=== PATIENT | female | born 2000 | race Caucasian/White ===

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

== ENCOUNTER 2022-04-09 14:44 | Inpatient (IN) | payer MEDICAID, OTHER ==
[~2022-04-09] VITALS: Ht 162.6 cm; Wt 47.8 kg
[2022-04-09 16:11] LABS: Basophils # (auto) 0 10 ^3/uL (0-0.2); Basophils % (auto) 0.4 % (0.0-2.0); Eosinophils # (auto) 0.1 10 ^3/uL (0-0.8); Hematocrit 36.8 % (36.0-46.0); Hemoglobin 12.2 g/dL (12.2-16.2); Lymphocytes # (auto) 1.8 10 ^3/uL (0.4-5.4); Lymphocytes % (auto) 17.7 % (10.0-50.0); Mean Corpuscular Hemoglobin 31.1 pg (28.0-32.0); Mean Corpuscular Hgb Conc. 33.1 g/dL (32.0-36.0); Monocytes # (auto) 0.6 10 ^3/uL (0-1.3); Neutrophils # (auto) 7.7 10 ^3/uL (1.6-8.6); Neutrophils % (auto) 74.9 % (37.0-80.0); Red Blood Cells 3.91 10^6/uL (4.0-5.20); Red Cell Distribution Width 12.7 % (11.8-14.3); White Blood Cell 10.2 10^3/uL (4.4-10.8)
[2022-04-09] MEDS ORDERED: SODIUM CHLORIDE 0.9% 1,000 ML IV ONE (16:15)
[2022-04-09 16:17] LABS: Urine Bacteria MOD /hpf (None Seen); Urine Blood 3+ /uL (Negative); Urine Mucus FEW (None Seen); Urine Specific Gravity 1.019 (1.001-1.035); Urine WBC 1083 /hpf (0 - 5); Urine WBC Clumps PRESENT /hpf (None Seen)
[2022-04-09 16:29] LABS: BUN/Creatinine Ratio 13.8; Calcium 9.1 mg/dL (8.5-10.1); Potassium 3.9 mmol/L (3.5-5.1)
[2022-04-09] MEDS ORDERED: KETOROLAC TROMETH 30 MG/ML 1ML VIAL IV ONE (17:15)
[2022-04-09] MEDS ORDERED: MORPHINE SULFATE INJ 2 MG/ml SYRG IV PRN (17:30)
[2022-04-09] MEDS ORDERED: ONDANSETRON HCL 4 MG/2 ML VIAL IV PRN (17:30)
[2022-04-09] MEDS: SOD CHL 0.45% 1,000 ML IV SCH (18:32)
[2022-04-09] MEDS ORDERED: SERT25TA14 PO (20:44)
[2022-04-09] MEDS ORDERED: CABE0.5T PO (20:44)
[2022-04-09 23:56] VITALS: BP 113/68
[2022-04-10 05:37] VITALS: BP 96/61
[2022-04-10] MEDS: SOD CHL 0.45% 1,000 ML IV SCH ×3 (06:39→23:30)
[2022-04-10 06:57] LABS: Basophils # (auto) 0 10 ^3/uL (0-0.2); Basophils % (auto) 0.6 % (0.0-2.0); Eosinophils # (auto) 0.2 10 ^3/uL (0-0.8); Eosinophils % (auto) 2.7 % (0.0-7.0); Hematocrit 32.2 % (36.0-46.0); Hemoglobin 10.9 g/dL (12.2-16.2); Lymphocytes # (auto) 1.8 10 ^3/uL (0.4-5.4); Mean Corpuscular Hemoglobin 31.7 pg (28.0-32.0); Mean Corpuscular Hgb Conc. 33.9 g/dL (32.0-36.0); Mean Corpuscular Volume 93.5 fL (80.0-100.0); Monocytes # (auto) 0.5 10 ^3/uL (0-1.3); Monocytes % (auto) 6.3 % (0.0-12.0); Neutrophils # (auto) 4.7 10 ^3/uL (1.6-8.6); Neutrophils % (auto) 65.4 % (37.0-80.0); Red Blood Cells 3.44 10^6/uL (4.0-5.20); Red Cell Distribution Width 12.5 % (11.8-14.3); White Blood Cell 7.3 10^3/uL (4.4-10.8)
[2022-04-10 07:11] LABS: Potassium 4.1 mmol/L (3.5-5.1)
[2022-04-10 07:14] LABS: BUN/Creatinine Ratio 10.2; Calcium 8.2 mg/dL (8.5-10.1)
[2022-04-10 07:17] LABS: Bilirubin, Total 1.2 mg/dL (0.2-1.0); Total Protein 5.7 g/dL (6.4-8.2)
[2022-04-10 09:10] VITALS: BP 98/52
[2022-04-10] MEDS: cefTRIAXone 1GM/50ML D5W 50 ML IV SCH (10:15)
[2022-04-10 12:53] VITALS: BP 108/63
[2022-04-10 16:38] VITALS: BP 90/58
[2022-04-10] MEDS: KETOROLAC TROMETH 30 MG/ML 1ML VIAL IV PRN ×2 (17:15→22:45)
[2022-04-10 22:00] VITALS: BP 104/72
[2022-04-11 01:07] LABS: Urine Bacteria NONE SEEN /hpf (None Seen); Urine Blood Negative /uL (Negative); Urine WBC 63 /hpf (0 - 5)
[2022-04-11 05:00] VITALS: BP 96/62
[2022-04-11 05:53] LABS: Basophils # (auto) 0 10 ^3/uL (0-0.2); Basophils % (auto) 0.5 % (0.0-2.0); Eosinophils # (auto) 0.2 10 ^3/uL (0-0.8); Eosinophils % (auto) 3.3 % (0.0-7.0); Hematocrit 32.7 % (36.0-46.0); Hemoglobin 11.4 g/dL (12.2-16.2); Lymphocytes # (auto) 2.4 10 ^3/uL (0.4-5.4); Lymphocytes % (auto) 33.1 % (10.0-50.0); Mean Corpuscular Hemoglobin 32.6 pg (28.0-32.0); Mean Corpuscular Volume 93.2 fL (80.0-100.0); Monocytes # (auto) 0.4 10 ^3/uL (0-1.3); Monocytes % (auto) 5.8 % (0.0-12.0); Neutrophils # (auto) 4.2 10 ^3/uL (1.6-8.6); Neutrophils % (auto) 57.3 % (37.0-80.0); Nucleated Red Blood Cells % 0.1 %; Red Blood Cells 3.51 10^6/uL (4.0-5.20); Red Cell Distribution Width 12.7 % (11.8-14.3); White Blood Cell 7.4 10^3/uL (4.4-10.8)
[2022-04-11 06:15] LABS: BUN/Creatinine Ratio 11.1; Calcium 8.6 mg/dL (8.5-10.1); Potassium 3.9 mmol/L (3.5-5.1)
[2022-04-11 09:00] VITALS: BP 90/60
[2022-04-11] MEDS: cefTRIAXone 1GM/50ML D5W 50 ML IV SCH (09:36)
[2022-04-11] MEDS: SOD CHL 0.45% 1,000 ML IV SCH ×2 (09:36→19:30)
[2022-04-11] MEDS: KETOROLAC TROMETH 30 MG/ML 1ML VIAL IV PRN (10:21)
[2022-04-11 13:00] VITALS: BP 96/55
[2022-04-11] MEDS ORDERED: ACETAMINOPHEN 500 MG TAB PO PRN (13:45)
[2022-04-11] MEDS ORDERED: SODIUM CHLORIDE 0.9% 1,000 ML IV ONE (15:30)
[2022-04-11] MEDS ORDERED: SERTRALINE HCL 50 MG TAB PO ONE (16:30)
[2022-04-11 17:00] VITALS: BP 109/70
[2022-04-11 22:00] VITALS: BP 111/76
[2022-04-12] MEDS: SOD CHL 0.45% 1,000 ML IV SCH ×2 (01:05→15:30)
[2022-04-12 05:00] VITALS: BP 94/57
[2022-04-12 09:00] VITALS: BP 100/62
[2022-04-12] MEDS: cefTRIAXone 1GM/50ML D5W 50 ML IV SCH (09:29)
[2022-04-12] MEDS ORDERED: SERTRALINE HCL 50 MG TAB PO SCH (10:00)
[2022-04-12] MEDS ORDERED: LEVO500T31 PO (12:24)
[2022-04-12 13:00] VITALS: BP 97/59
[2022-04-12 14:22] VITALS: BP 106/72
[2022-04-14] MEDS ORDERED: CABERGOLINE 0.5 MG TABLET PO SCH (10:00)
== END 2022-04-12 16:40 | disposition home or self-care (01) | DRG 463 ==
LOC: ER 14:44 → OVERFLOW 17:22 → WEST WING 20:23
PROVIDERS: ADMIT Registered Nurse; ATTEND Internal Medicine
DX: N10 Acute pyelonephritis (principal); R31.9 Hematuria, unspecified; Z20.822 Contact with and (suspected) exposure to COVID-19; Z90.49 Acquired absence of other specified parts of digestive tract; Z88.1 Allergy status to other antibiotic agents; Z88.5 Allergy status to narcotic agent; Z88.8 Allergy status to other drugs, medicaments and biological substances
CPT/HCPCS: 36415; 76775; 80048; 80053; 81001; 81025; 85025; 87086; 96361; 96374; G0378; J0696; J1885

== ENCOUNTER 2023-05-05 23:45 | Emergency (ER) | payer MEDICAID ==
[~2023-05-05] VITALS: Ht 162.6 cm; Wt 52.5 kg
[~2023-05-05 23:45] MED LIST: CABE0.5T PO; LEVO500T31 PO; SERT25TA28 PO
[2023-05-06 04:30] VITALS: BP 96/50; PULSE 78; RESP 18; TEMP 97.7; O2SAT 96
[2023-05-06] MEDS ORDERED: DexAMETHasone SOD PHOS 10MG/1ML VIAL INJ IM ONE (05:00)
== END 2023-05-06 05:17 | disposition home or self-care (01) ==
LOC: ER 23:45
DX: S96.912A Strain of unspecified muscle and tendon at ankle and foot level, left foot, initial encounter (principal); Z88.8 Allergy status to other drugs, medicaments and biological substances; Z79.899 Other long term (current) drug therapy; Z90.49 Acquired absence of other specified parts of digestive tract; X58.XXXA Exposure to other specified factors, initial encounter; Y93.89 Activity, other specified; Y92.89 Other specified places as the place of occurrence of the external cause; Y99.8 Other external cause status
CPT/HCPCS: 93971; 96372; 99285; J1100

== ENCOUNTER → 2023-05-20 | Emergency (ER) | payer MEDICAID | END | disposition left against medical advice (07) | LOC: ER 22:56 | DX: T30.0 Burn of unspecified body region, unspecified degree (principal); Z53.21 Procedure and treatment not carried out due to patient leaving prior to being seen by health care provider; X08.8XXA Exposure to other specified smoke, fire and flames, initial encounter; Y93.89 Activity, other specified; Y92.9 Unspecified place or not applicable; Y99.9 Unspecified external cause status ==

== ENCOUNTER → 2023-05-20 | Emergency (ER) | payer MEDICAID | END | disposition left against medical advice (07) | LOC: ER 23:13 | DX: T30.0 Burn of unspecified body region, unspecified degree (principal); Z53.21 Procedure and treatment not carried out due to patient leaving prior to being seen by health care provider; X08.8XXA Exposure to other specified smoke, fire and flames, initial encounter; Y93.9 Activity, unspecified; Y92.9 Unspecified place or not applicable; Y99.9 Unspecified external cause status ==

== ENCOUNTER → 2023-05-23 | Outpatient (CLI) | payer MEDICAID | END | disposition home or self-care (01) | LOC: LAB 10:58 | PROVIDERS: ATTEND Obstetrics & Gynecology | DX: N39.0 Urinary tract infection, site not specified (principal) | CPT/HCPCS: 87086 ==

== ENCOUNTER 2023-06-11 18:16 | Observation (INO) | payer MEDICAID ==
[~2023-06-11] VITALS: Ht 162.6 cm; Wt 54.4 kg
[2023-06-11 18:25] VITALS: BP 109/69; PULSE 90; RESP 16; O2SAT 99
[2023-06-11] MEDS ORDERED: LACTATED RINGER'S 1,000 ML IV ONE (19:31)
[2023-06-11] MEDS ORDERED: TERBUTALINE SULFATE 1 MG/ML 1ML VIAL SC ONE (21:22)
[2023-06-11] MEDS: TERBUTALINE SULFATE 1 MG/ML 1ML VIAL SC SCH ×2 (21:57→22:10)
== END 2023-06-11 23:09 | disposition home or self-care (01) ==
LOC: ER 18:16 → LDRP 18:40
PROVIDERS: ADMIT Obstetrics & Gynecology; ATTEND Obstetrics & Gynecology
DX: O22.43 Hemorrhoids in pregnancy, third trimester (principal); Z3A.35 35 weeks gestation of pregnancy; Z88.0 Allergy status to penicillin
CPT/HCPCS: 59025; 96360; 96361; 96372; G0378; J3105

== ENCOUNTER 2023-06-24 13:56 | Observation (INO) | payer MEDICAID ==
[~2023-06-24] VITALS: Ht 170.2 cm; Wt 65.8 kg
[~2023-06-24 13:56] MED LIST changes: -CABE0.5T PO; -SERT25TA28 PO
[2023-06-24] MEDS ORDERED: LACTATED RINGER'S 1,000 ML IV ONE (15:00)
[2023-06-24] MEDS ORDERED: PREN-96 PO (15:15)
== END 2023-06-24 15:31 | disposition home or self-care (01) ==
LOC: UNDOADMOB 13:56 → LDRP 13:56
PROVIDERS: ADMIT Obstetrics & Gynecology; ATTEND Obstetrics & Gynecology
DX: O62.9 Abnormality of forces of labor, unspecified (principal); Z3A.37 37 weeks gestation of pregnancy
CPT/HCPCS: 59025; 81002; G0378

== ENCOUNTER 2023-07-09 02:08 | Observation (INO) | payer MEDICAID ==
[~2023-07-09] VITALS: Ht 162.6 cm; Wt 56.7 kg
[~2023-07-09 02:08] MED LIST changes: +PREN-96 PO
[2023-07-09] MEDS ORDERED: cefTRIAXone SOD 1,000 MG VL IM ONE (03:15)
[2023-07-09] MEDS ORDERED: cefTRIAXone 1GM/50ML D5W 50 ML IV ONE (03:30)
[2023-07-09] MEDS ORDERED: SODIUM CHLORIDE 0.9% 1,000 ML IV ONE (03:30)
[2023-07-09 04:10] LABS: Urine Bacteria FEW /hpf (None Seen); Urine Blood 2+ /uL (Negative); Urine Clarity Clear (Clear); Urine Color Colorless (Yellow); Urine Protein, UAD TRACE (Negative); Urine Specific Gravity 1.002 (1.001-1.035); Urine Urobilinogen Normal (Negative); Urine WBC 56 /hpf (0 - 5); Urine pH 6.5 (5.0-8.0)
== END 2023-07-09 05:07 | disposition home or self-care (01) ==
LOC: LDRP 02:08
PROVIDERS: ADMIT Obstetrics & Gynecology; ATTEND Obstetrics & Gynecology
DX: O62.9 Abnormality of forces of labor, unspecified (principal); O26.893 Other specified pregnancy related conditions, third trimester; N89.8 Other specified noninflammatory disorders of vagina; O23.43 Unspecified infection of urinary tract in pregnancy, third trimester; Z3A.39 39 weeks gestation of pregnancy
CPT/HCPCS: 59025; 81001; 81002; 87086; 87088; 87186; 94760; 96361; 96365; G0378; J0696; J7030; 96360

== ENCOUNTER 2023-07-12 14:05 | Observation (INO) | payer MEDICAID | END 2023-07-12 15:10 | disposition home or self-care (01) | LOC: LDRP 14:05 → UNDOADMOB 14:05 → LDRP 14:12 → UNDODISOB 15:10 | PROVIDERS: ADMIT Obstetrics & Gynecology; ATTEND Obstetrics & Gynecology | DX: O62.9 Abnormality of forces of labor, unspecified (principal); Z3A.40 40 weeks gestation of pregnancy | CPT/HCPCS: 59025; 76818; 81002; 94760; G0378 ==

== ENCOUNTER 2023-07-14 22:03 | Inpatient (IN) | payer MEDICAID ==
[~2023-07-14] VITALS: Ht 162.6 cm; Wt 58.1 kg
[2023-07-14] MEDS ORDERED: WITCH HAZEL-GLYCERIN PAD TOP PRN (22:30)
[2023-07-14] MEDS ORDERED: DERMOPLAST 60ML BOTTLE TOP PRN (22:30)
[2023-07-14] MEDS ORDERED: LIDOCAINE 2%HCL (LOCAL ANESTH.) INJ 20ML MDV IJ PRN (22:30)
[2023-07-14] MEDS ORDERED: PROMETHAZINE HCL 25 MG/ML 1ML IV PRN (22:30)
[2023-07-14] MEDS ORDERED: PHISODERM TOP SOLN 240ML BTL TOP PRN (22:30)
[2023-07-14 22:59] LABS: Basophils # (auto) 0.1 10 ^3/uL (0-0.2); Basophils % (auto) 0.6 % (0.0-2.0); Eosinophils # (auto) 0.1 10 ^3/uL (0-0.8); Eosinophils % (auto) 0.9 % (0.0-7.0); Hematocrit 35.1 % (36.0-46.0); Hemoglobin 11.9 g/dL (12.2-16.2); Lymphocytes # (auto) 1.9 10 ^3/uL (0.4-5.4); Lymphocytes % (auto) 16.5 % (10.0-50.0); Mean Corpuscular Hemoglobin 32.4 pg (28.0-32.0); Mean Corpuscular Hgb Conc. 33.8 g/dL (32.0-36.0); Mean Corpuscular Volume 95.9 fL (80.0-100.0); Monocytes # (auto) 0.6 10 ^3/uL (0-1.3); Monocytes % (auto) 5.1 % (0.0-12.0); Neutrophils # (auto) 8.6 10 ^3/uL (1.6-8.6); Neutrophils % (auto) 76.9 % (37.0-80.0); Nucleated Red Blood Cells % 0.1 %; Red Blood Cells 3.66 10^6/uL (4.0-5.20); Red Cell Distribution Width 13.3 % (11.8-14.3); White Blood Cell 11.2 10^3/uL (4.4-10.8)
[2023-07-14 23:01] LABS: Urine Bacteria NONE SEEN /hpf (None Seen); Urine Blood Negative /uL (Negative); Urine Clarity Clear (Clear); Urine Color Yellow (Yellow); Urine Mucus FEW (None Seen); Urine Protein, UAD 1+ (Negative); Urine Specific Gravity 1.026 (1.001-1.035); Urine WBC 19 /hpf (0 - 5); Urine pH 6.5 (5.0-8.0)
[2023-07-14] MEDS: miSOPROStol 50 MCG per PRE-CUT 1/2 TAB PO PRN (23:10)
[2023-07-14] MEDS: LACTATED RINGER'S 1,000 ML IV SCH (23:12)
[2023-07-14 23:15] LABS: Amphetamine Screen, Urine Neg (NEGATIVE); Barbiturate Scree,Urine Neg (NEGATIVE); Benzodiazephine Screen, Urine Neg (NEGATIVE); Cocaine Screen, Urine Neg (NEGATIVE)
[2023-07-14 23:15] LABS: INR 0.94 (0.9-1.15); Partial Thromboplastin Time 27.8 SEC (24.5-34.5); Prothrombin Time 9.9 sec (9.3-11.8)
[2023-07-14 23:16] LABS: Cannabinoid Screen, Urine Neg (NEGATIVE); Opiate Scree,Urine Neg (NEGATIVE); Phencyclidine Screen, Urine Neg (NEGATIVE)
[2023-07-14 23:18] LABS: Alanine Aminotransferase 11 U/L (7-40); Albumin 3.8 g/dL (3.2-4.8); Alkaline Phosphatase 168 U/L (46-116); Anion Gap 11 (5-15); Aspartate Aminotransferase 11 U/L (13-40); BUN/Creatinine Ratio 12.9 (10.0-20.0); Bilirubin, Total 0.7 mg/dL (0.2-1.0); Blood Urea Nitrogen 9 mg/dL (9-23); Calcium 9.5 mg/dL (8.5-10.1); Carbon Dioxide 20 mmol/L (20-30); Chloride 107 mmol/L (98-107); Glucose 107 mg/dL (74-106); Potassium 4.1 mmol/L (3.5-5.1); Sodium 138 mmol/L (136-145); Total Protein 6.2 g/dL (5.7-8.2)
[2023-07-15] MEDS ORDERED: LIDOCAINE 2%HCL (LOCAL ANESTH.) INJ 20ML MDV IJ PRN (02:00)
[2023-07-15] MEDS ORDERED: PROMETHAZINE HCL 25 MG/ML 1ML IV PRN (02:00)
[2023-07-15] MEDS: miSOPROStol 50 MCG per PRE-CUT 1/2 TAB PO PRN ×2 (03:13→07:40)
[2023-07-15] MEDS: LACTATED RINGER'S 1,000 ML IV SCH ×3 (05:01→19:22)
[2023-07-15] MEDS ORDERED: LACT. RINGERS/OXYTOCIN 20UNITS 500 ML IV ONE ×2 (08:15→08:45)
[2023-07-15] MEDS ORDERED: LACT. RINGERS/OXYTOCIN 20UNITS 1,000 ML IV SCH (14:45)
[2023-07-15] MEDS ORDERED: CLINDAMYCIN 900MG IV 50 ML IV SCH (15:30)
[2023-07-15] MEDS ORDERED: ceFAZolin 2 GM/D5W100ml 100 ML IV ONE (15:30)
[2023-07-15] MEDS ORDERED: ePHEDrine SULFATE 50 MG/ML AMP IV ONE (16:00)
[2023-07-15] MEDS ORDERED: NALOXONE HCL 0.4 MG/ML VIAL IV ONE (16:00)
[2023-07-15] MEDS ORDERED: ROPIVACAINE HCL 200 ML EPI SCH ×2 (16:00→19:45)
[2023-07-15] MEDS ORDERED: ceFAZolin 1GM/50ML 50 ML IV SCH (22:00)
[2023-07-16] MEDS ORDERED: ONDANSETRON HCL 4 MG/2 ML VIAL ONE (07:36)
[2023-07-16] MEDS ORDERED: METHYLERGONOVINE MALEATE 0.2 MG/ML AMP IM ONE ×2 (07:53→08:00)
[2023-07-16] MEDS ORDERED: ONDANSETRON HCL 4 MG/2 ML VIAL IV ONE (08:00)
[2023-07-16 08:06] LABS: RPR Non Reactive (Non Reactive)
[2023-07-16] MEDS ORDERED: ONDANSETRON ODT 4 MG TAB PO PRN (08:30)
[2023-07-16] MEDS ORDERED: DOCUSATE CALCIUM 240 MG CAP PO SCH (10:00)
[2023-07-16 11:07] VITALS: BP 127/79; PULSE 79; RESP 18; TEMP 99.5
[2023-07-16] MEDS: IBUPROFEN 600 MG TAB PO PRN (13:32)
[2023-07-16 15:00] VITALS: BP 102/71; PULSE 70; RESP 18; TEMP 98.9; O2SAT 97
[2023-07-16] MEDS: ACETAMINOPHEN 325 MG TAB PO PRN (15:58)
[2023-07-16 19:00] VITALS: BP 133/74; PULSE 89; RESP 18; TEMP 98.4; O2SAT 97
[2023-07-16 23:00] VITALS: BP 111/62; PULSE 83; RESP 18; TEMP 98.4; O2SAT 98
[2023-07-17] MEDS: IBUPROFEN 600 MG TAB PO PRN (01:13)
[2023-07-17 03:00] VITALS: BP 130/85; PULSE 68; RESP 17; TEMP 98.5; O2SAT 97
[2023-07-17 07:10] VITALS: BP 103/59; PULSE 70; RESP 17; TEMP 97.9; O2SAT 97
[2023-07-17] MEDS: ACETAMINOPHEN 325 MG TAB PO PRN (09:11)
[2023-07-17 13:28] VITALS: BP 115/65; PULSE 85; RESP 18; TEMP 98; O2SAT 97
[2023-07-18 21:06] LABS: Treponema pallidum Ab (FTA-Ab) Non Reactive (Non Reactive)
== END 2023-07-17 14:35 | disposition home or self-care (01) | DRG 560 ==
LOC: LDRP 22:03
PROVIDERS: ADMIT Obstetrics & Gynecology; ATTEND Obstetrics & Gynecology
PROC: 3E0P7VZ Introduction of Hormone into Female Reproductive, Via Natural or Artificial Opening (ICD-10-PCS; 2023-07-14)
PROC: 3E0R3BZ Introduction of Anesthetic Agent into Spinal Canal, Percutaneous Approach (ICD-10-PCS; principal; 2023-07-16)
PROC: 10D07Z6 Extraction of Products of Conception, Vacuum, Via Natural or Artificial Opening (ICD-10-PCS; 2023-07-16)
PROC: 00HU33Z Insertion of Infusion Device into Spinal Canal, Percutaneous Approach (ICD-10-PCS; 2023-07-16)
PROC: 10907ZC Drainage of Amniotic Fluid, Therapeutic from Products of Conception, Via Natural or Artificial Opening (ICD-10-PCS; 2023-07-16)
PROC: 3E033VJ Introduction of Other Hormone into Peripheral Vein, Percutaneous Approach (ICD-10-PCS; 2023-07-16)
PROC: 0W8NXZZ Division of Female Perineum, External Approach (ICD-10-PCS; 2023-07-16)
DX: O48.0 Post-term pregnancy (principal); Z37.0 Single live birth; F41.9 Anxiety disorder, unspecified; Z3A.40 40 weeks gestation of pregnancy; Z88.0 Allergy status to penicillin; Z88.5 Allergy status to narcotic agent; O69.81X0 Labor and delivery complicated by cord around neck, without compression, not applicable or unspecified; O99.824 Streptococcus B carrier state complicating childbirth
CPT/HCPCS: 36415; 59025; 59409; 62282; 80053; 80307; 81001; 81002; 85025; 85610; 85730; 86592; 86850; 86900; 86901; 94760; 94762; 96360; 96361; 96365; 96366; 96372; 96375; G0378; J0690; J2405; J2590

== ENCOUNTER 2023-09-14 06:38 | Emergency (ER) | payer MEDICAID ==
[~2023-09-14] VITALS: Ht 162.6 cm; Wt 48.7 kg
[2023-09-14 07:03] VITALS: BP 121/79; PULSE 101; RESP 16; O2SAT 98
[2023-09-14 11:51] LABS: Urine Bacteria FEW /hpf (None Seen); Urine Blood Negative /uL (Negative); Urine Clarity HAZY (Clear); Urine Color Yellow (Yellow); Urine Mucus FEW (None Seen); Urine Protein, UAD TRACE (Negative); Urine Specific Gravity 1.021 (1.001-1.035); Urine Urobilinogen Normal (Negative); Urine WBC 37 /hpf (0 - 5)
[2023-09-15] MEDS ORDERED: CEPH500C PO (00:46)
[2023-09-15] MEDS ORDERED: ACET500T58 PO (00:46)
[2023-09-15] MEDS ORDERED: cefTRIAXone SOD 1,000 MG VL ONE (01:14)
== END 2023-09-14 11:57 | disposition left against medical advice (07) ==
LOC: ER 06:38
DX: R10.9 Unspecified abdominal pain (principal); R10.2 Pelvic and perineal pain; R11.0 Nausea; R51.9 Headache, unspecified; Z53.21 Procedure and treatment not carried out due to patient leaving prior to being seen by health care provider
CPT/HCPCS: 36415; 81001; 84702

== ENCOUNTER 2023-09-14 18:10 | Emergency (ER) | payer MEDICAID ==
[~2023-09-14] VITALS: Ht 162.6 cm; Wt 50.0 kg
[2023-09-14 23:29] LABS: Rapid Influenza A Negative (Negative); Rapid Influenza B Negative (Negative)
[2023-09-14 23:30] LABS: COVID19 ANTIGEN SOFIA FIA NEGATIVE (NEGATIVE)
[2023-09-15] MEDS ORDERED: ACET500T58 PO (00:46)
[2023-09-15] MEDS ORDERED: CEPH500C PO (00:46)
[2023-09-15 00:51] VITALS: BP 124/80; PULSE 97; RESP 16; TEMP 98.5; O2SAT 98
[2023-09-15] MEDS: cefTRIAXone SOD 1,000 MG VL IM ONE (01:33)
== END 2023-09-15 01:49 | disposition home or self-care (01) ==
LOC: EDBD 18:10 → ER 18:10
DX: N39.0 Urinary tract infection, site not specified (principal); F12.10 Cannabis abuse, uncomplicated; Z20.822 Contact with and (suspected) exposure to COVID-19
CPT/HCPCS: 36415; 87426; 87804; 96372; 99283; J0696